=== PATIENT | female | born 1955 | race Caucasian/White ===

== ENCOUNTER 2018-09-25 10:36 | Outpatient (REF) | payer MEDICARE, SELFPAY ==
[2018-09-25 20:19] LABS: Iron 81 ug/dL (50-175); Total Iron Binding Capacity 292 ug/dL (250-450); Transferrin Sat 28 % (15-50)
[2018-09-25 20:32] LABS: Anion Gap 7.2 mmol/L (3-11); BUN 37 mg/dL (7-18); CO2 29.8 mmol/L (21.0-32.0); CREATININE 1.05 mg/dL (0.55-1.02); Calcium 8.5 mg/dL (8.5-10.1); Calculated LDL 176 mg/dL; Chloride 103 mmol/L (98-107); Cholesterol 241 mg/dL (50-200); Estimated GFR 52.93 (mL/min/1.73m2); Glucose 88 mg/dL (70-100); HDL Cholesterol 30 mg/dL (40-60); Potassium 4.4 mmol/L (3.5-5.1); Sodium 140 mmol/L (136-145); TSH 4.36 uIU/mL (0.358-3.74); Triglyceride 177 mg/dL (30-150)
== END 2018-09-25 10:56 ==
LOC: NCHCN 10:36
PROVIDERS: PCP Internal Medicine; Visit Provider Nurse Practitioner Family
DX: I10 Essential (primary) hypertension (principal); D50.9 Iron deficiency anemia, unspecified; E78.5 Hyperlipidemia, unspecified; E03.9 Hypothyroidism, unspecified
CPT/HCPCS: 80048; 80061; 83721; 83540; 83550; 84443

== ENCOUNTER 2019-10-19 10:10 | Outpatient (REF) | payer MEDICARE, SELFPAY ==
[2019-10-19 19:48] LABS: Anion Gap 7.9 mmol/L (3-11); BUN 21 mg/dL (7-18); CO2 25.1 mmol/L (21.0-32.0); CREATININE 0.92 mg/dL (0.55-1.02); Calcium 9.1 mg/dL (8.5-10.1); Calculated LDL 138 mg/dL (<100); Chloride 105 mmol/L (98-107); Cholesterol 197 mg/dL (<200); Glucose 91 mg/dL (74-106); HDL Cholesterol 28 mg/dL (40-60); Potassium 4.3 mmol/L (3.5-5.1); Sodium 138 mmol/L (136-145); TSH 0.07 uIU/mL (0.36-3.74); Triglyceride 158 mg/dL (<150)
== END 2019-10-19 10:30 ==
LOC: NCHCN 10:10
PROVIDERS: PCP Internal Medicine; Visit Provider Nurse Practitioner Family
DX: I10 Essential (primary) hypertension (principal); Z13.220 Encounter for screening for lipoid disorders; E03.9 Hypothyroidism, unspecified
CPT/HCPCS: 80048; 80061; 84443

== ENCOUNTER 2019-11-15 10:32 | Outpatient (REF) | payer MEDICARE, SELFPAY ==
[2019-11-15 20:15] LABS: TSH 0.08 uIU/mL (0.36-3.74)
== END 2019-11-15 10:52 ==
LOC: NCHCN 10:32
PROVIDERS: PCP Internal Medicine; Visit Provider Nurse Practitioner Family
DX: E03.9 Hypothyroidism, unspecified (principal)
CPT/HCPCS: 84443

== ENCOUNTER 2020-01-07 09:59 | Outpatient (REF) | payer MEDICARE, SELFPAY ==
[2020-01-07 19:19] LABS: Magnesium 2.1 mg/dL (1.8-2.4); TSH 0.25 uIU/mL (0.36-3.74)
== END 2020-01-07 10:19 ==
LOC: NCHCN 09:59
PROVIDERS: PCP Internal Medicine; Visit Provider Nurse Practitioner Family
DX: E03.9 Hypothyroidism, unspecified (principal)
CPT/HCPCS: 83735; 84443

== ENCOUNTER 2020-03-29 14:57 | Outpatient (REF) | payer MEDICARE, SELFPAY ==
[2020-03-29 21:08] LABS: TSH 5.25 uIU/mL (0.36-3.74)
== END 2020-03-29 15:17 ==
LOC: NCHCN 14:57
PROVIDERS: PCP Internal Medicine; Visit Provider Nurse Practitioner Family
DX: E03.9 Hypothyroidism, unspecified (principal)
CPT/HCPCS: 84443

== ENCOUNTER 2020-10-03 17:00 | Outpatient (REF) | payer MEDICARE, SELFPAY ==
[2020-10-03 19:01] LABS: ALT 24 U/L (14-59); AST 25 U/L (15-37); Albumin 3.8 g/dL (3.4-5.0); Alkaline Phosphatase 126 U/L (46-116); Anion Gap 11.7 mmol/L (3-11); BUN 19 mg/dL (7-18); Bilirubin, Total 0.6 mg/dL (0.2-1.0); CO2 24.3 mmol/L (21.0-32.0); Calcium 9.2 mg/dL (8.5-10.1); Chloride 105 mmol/L (98-107); Estimated GFR 55.64 (mL/min/1.73m2); Glucose 98 mg/dL (74-106); Potassium 4.5 mmol/L (3.5-5.1); Sodium 141 mmol/L (136-145); TSH 2.32 uIU/mL (0.36-3.74); Total Protein 7.4 g/dL (6.4-8.2)
== END 2020-10-03 17:01 | disposition home or self-care (01) ==
LOC: NCHCN 17:00
PROVIDERS: PCP Internal Medicine; Visit Provider Nurse Practitioner Family
DX: E03.9 Hypothyroidism, unspecified (principal); I10 Essential (primary) hypertension
CPT/HCPCS: 80053; 84443

== ENCOUNTER 2021-07-23 16:27 | Outpatient (REF) | payer MEDICARE, SELFPAY ==
[2021-07-23 19:07] LABS: HCT 40.4 % (36.0-46.0); HGB 12.8 g/dL (11.2-15.7); MCH 30.5 pg (27.0-33.0); MCHC 31.7 % (32.0-36.0); MCV 96.4 fL (80-95); MPV 11.3 fL (8.0-11.0); Platelet Count 302 10^3/uL (130-400); RBC 4.19 10^6/uL (3.93-5.22); RDW 14.6 % (11.7-14.6); RDW-SD 52.2 fL; WBC 9.63 10^3/uL (4.4-10.8)
[2021-07-23 20:00] LABS: ALT 14 U/L (14-59); AST 19 U/L (15-37); Albumin 3.5 g/dL (3.4-5.0); Alkaline Phosphatase 153 U/L (46-116); Anion Gap 7.2 mmol/L (3-11); BUN 20 mg/dL (7-18); Bilirubin, Total 0.5 mg/dL (0.2-1.0); CO2 28.8 mmol/L (21.0-32.0); CREATININE 0.8 mg/dL (0.55-1.02); Calcium 8.9 mg/dL (8.5-10.1); Chloride 102 mmol/L (98-107); Glucose 83 mg/dL (74-106); Potassium 4.4 mmol/L (3.5-5.1); Sodium 138 mmol/L (136-145)
== END 2021-07-23 16:28 | disposition home or self-care (01) ==
LOC: NCHCN 16:27
PROVIDERS: PCP Internal Medicine; Visit Provider Nurse Practitioner Family
DX: E03.9 Hypothyroidism, unspecified (principal); I10 Essential (primary) hypertension; I48.0 Paroxysmal atrial fibrillation; N18.30 Chronic kidney disease, stage 3 unspecified; R74.8 Abnormal levels of other serum enzymes
CPT/HCPCS: 80053; 85027; 84443

== ENCOUNTER 2021-10-31 15:55 | Outpatient (REF) | payer MEDICARE, SELFPAY ==
[2021-10-31 21:45] LABS: TSH 24.01 uIU/mL (0.36-3.74)
== END 2021-10-31 15:56 | disposition home or self-care (01) ==
LOC: NCHCN 15:55
PROVIDERS: PCP Internal Medicine; Visit Provider Nurse Practitioner Family
DX: E03.9 Hypothyroidism, unspecified (principal)
CPT/HCPCS: 84443

== ENCOUNTER 2021-11-07 19:12 | Outpatient (REF) | payer MEDICARE, SELFPAY ==
[2021-11-07 19:20] LABS: TSH (W/Ref FT4) 22.28 uIU/mL (0.36-3.74)
[2021-11-07 19:47] LABS: FREE T4 1.25 ng/dL (0.76-1.46)
== END 2021-11-07 19:13 | disposition home or self-care (01) ==
LOC: NCHCN 19:12
PROVIDERS: PCP Internal Medicine; Visit Provider Nurse Practitioner Family
DX: E03.9 Hypothyroidism, unspecified (principal)
CPT/HCPCS: 84439; 84443

== ENCOUNTER 2022-02-05 15:19 | Outpatient (REF) | payer MEDICARE, SELFPAY ==
[2022-02-05 18:49] LABS: Anion Gap 10.4 mmol/L (3-11); BUN 22 mg/dL (7-18); CO2 27.6 mmol/L (21.0-32.0); Calcium 9.2 mg/dL (8.5-10.1); Chloride 103 mmol/L (98-107); Estimated GFR 62.13 (mL/min/1.73m2); Glucose 99 mg/dL (74-106); Potassium 4.4 mmol/L (3.5-5.1); Sodium 141 mmol/L (136-145); TSH 7.65 uIU/mL (0.36-3.74)
== END 2022-02-05 15:20 | disposition home or self-care (01) ==
LOC: NCHCN 15:19
PROVIDERS: PCP Internal Medicine; Visit Provider Nurse Practitioner Family
DX: E03.9 Hypothyroidism, unspecified (principal)
CPT/HCPCS: 80048; 84443

== ENCOUNTER 2022-03-01 13:52 | Outpatient (REF) | payer MEDICARE, SELFPAY ==
[2022-03-01 20:48] LABS: Anion Gap 1.1 mmol/L (3-11); BUN 27 mg/dL (7-18); CO2 28.9 mmol/L (21.0-32.0); CREATININE 1.1 mg/dL (0.55-1.02); Calcium 9.3 mg/dL (8.5-10.1); Chloride 98 mmol/L (98-107); Estimated GFR 55.07 (mL/min/1.73m2); Glucose 104 mg/dL (74-106); Sodium 128 mmol/L (136-145)
== END 2022-03-01 13:53 | disposition home or self-care (01) ==
LOC: NCHCN 13:52
PROVIDERS: PCP Internal Medicine; Visit Provider Internal Medicine
DX: Z95.1 Presence of aortocoronary bypass graft (principal)
CPT/HCPCS: 80048

== ENCOUNTER 2022-05-08 15:07 | Outpatient (REF) | payer MEDICARE, SELFPAY ==
[2022-05-08 20:30] LABS: TSH 6.28 uIU/mL (0.36-3.74)
== END 2022-05-08 15:08 | disposition home or self-care (01) ==
LOC: NCHCN 15:07
PROVIDERS: PCP Internal Medicine; Visit Provider Nurse Practitioner Family
DX: E03.9 Hypothyroidism, unspecified (principal)
CPT/HCPCS: 84443

== ENCOUNTER 2022-06-18 15:43 | Outpatient (REF) | payer MEDICARE, SELFPAY ==
[2022-06-18 20:07] LABS: Anion Gap 8.1 mmol/L (3-11); BUN 33 mg/dL (7-18); CO2 28.9 mmol/L (21.0-32.0); Calcium 9.4 mg/dL (8.5-10.1); Chloride 104 mmol/L (98-107); Estimated GFR 61.75 (mL/min/1.73m2); Glucose 106 mg/dL (74-106); Potassium 4.6 mmol/L (3.5-5.1); Sodium 141 mmol/L (136-145); TSH (W/Ref FT4) 12.23 uIU/mL (0.36-3.74)
== END 2022-06-18 15:44 | disposition home or self-care (01) ==
LOC: NCHCN 15:43
PROVIDERS: PCP Internal Medicine; Visit Provider Nurse Practitioner Family
DX: E03.9 Hypothyroidism, unspecified (principal); E87.1 Hypo-osmolality and hyponatremia; I48.0 Paroxysmal atrial fibrillation
CPT/HCPCS: 80048; 84439; 84443

== ENCOUNTER 2022-07-01 11:48 | Outpatient (REF) | payer MEDICARE, SELFPAY ==
[2022-07-01 19:50] LABS: TSH (W/Ref FT4) 7.95 uIU/mL (0.36-3.74)
[2022-07-01 20:09] LABS: FREE T4 1.77 ng/dL (0.76-1.46)
== END 2022-07-01 11:49 | disposition home or self-care (01) ==
LOC: NCHCN 11:48
PROVIDERS: PCP Internal Medicine; Visit Provider Nurse Practitioner Family
DX: E03.9 Hypothyroidism, unspecified (principal)
CPT/HCPCS: 84439; 84443

== ENCOUNTER 2023-01-01 11:21 | Outpatient (REF) | payer MEDICARE, SELFPAY ==
[2023-01-01 20:46] LABS: TSH (W/Ref FT4) 5.14 uIU/mL (0.36-3.74)
[2023-01-01 21:19] LABS: FREE T4 1.42 ng/dL (0.76-1.46)
== END 2023-01-01 11:22 | disposition home or self-care (01) ==
LOC: NCHCN 11:21
PROVIDERS: PCP Internal Medicine; Visit Provider Nurse Practitioner Family
DX: E03.9 Hypothyroidism, unspecified (principal)
CPT/HCPCS: 84439; 84443

== ENCOUNTER 2024-06-30 10:08 | Outpatient (REF) | payer MEDICARE, SELFPAY ==
[2024-06-30 20:44] LABS: ALT 22 U/L (14-59); AST 28 U/L (15-37); Albumin 3.7 g/dL (3.4-5.0); Alkaline Phosphatase 160 U/L (46-116); Anion Gap 9.1 mmol/L (3-11); BUN 32 mg/dL (7-18); Bilirubin, Total 0.7 mg/dL (0.2-1.0); CO2 28.9 mmol/L (21.0-32.0); CREATININE 0.9 mg/dL (0.55-1.02); Calcium 9.3 mg/dL (8.5-10.1); Calculated LDL 68 mg/dL (<100); Chloride 104 mmol/L (98-107); Cholesterol 126 mg/dL (<200); Glucose 96 mg/dL (74-106); HDL Cholesterol 38 mg/dL (>or=50); Sodium 142 mmol/L (136-145); TSH 0.45 uIU/mL (0.36-3.74); Total Protein 7.5 g/dL (6.4-8.2); Triglyceride 103 mg/dL (<150)
== END 2024-06-30 10:09 | disposition home or self-care (01) ==
LOC: NCHCN 10:08
PROVIDERS: PCP Internal Medicine; Visit Provider Nurse Practitioner Family
DX: I10 Essential (primary) hypertension (principal); E78.5 Hyperlipidemia, unspecified; E03.9 Hypothyroidism, unspecified
CPT/HCPCS: 80053; 80061; 84443